=== PATIENT | female | born 1990 | race Caucasian/White ===

== ENCOUNTER 2019-10-09 20:27 | Emergency (ER) | payer BC ==
[~2019-10-09] VITALS: Ht 165.1 cm; Wt 72.6 kg
[2019-10-09 20:40] VITALS: Ht 165.1 cm; Wt 72.6 kg
[2019-10-09 21:15] VITALS: BP 127/74
== END 2019-10-09 21:15 | disposition home or self-care (01) ==
LOC: ED 20:27
DX: H72.91 Unspecified perforation of tympanic membrane, right ear (principal); J45.909 Unspecified asthma, uncomplicated